=== PATIENT | female | born 1970 | race Caucasian/White ===

== ENCOUNTER 2024-05-18 12:18 | Emergency (ER) | payer MEDICARE, MEDICAID ==
[~2024-05-18] VITALS: Ht 167.6 cm; Wt 93.2 kg
[2024-05-18 12:22] VITALS: BP 103/66; TEMP 98.3
[2024-05-18] MEDS ORDERED: Cyclobenzaprine 10 MG TAB PO ONE (13:00)
[2024-05-18] MEDS ORDERED: FLEXERIL 1010 MG/TAB PO (13:20)
[2024-05-18] MEDS ORDERED: NORCO 325 MG-51 TAB PO (13:20)
[2024-05-18 13:34] VITALS: PULSE 72
== END 2024-05-18 13:35 | disposition home or self-care (01) ==
LOC: COL.ER 12:18
DX: M54.42 Lumbago with sciatica, left side (principal); M54.41 Lumbago with sciatica, right side; G89.29 Other chronic pain